=== PATIENT | male | born 1960 | race Caucasian/White ===

== ENCOUNTER 2016-07-10 11:56 | Inpatient (IN) | payer SELFPAY ==
[~2016-07-10] VITALS: Ht 175.3 cm; Wt 58.3 kg
[~2016-07-10 11:56] MED LIST: DICL75 PO; HYDR-3533 PO
[2016-07-10 12:03] VITALS: BP 141/95; PULSE 78; RESP 16; TEMP 98.4; O2SAT 97
[2016-07-10] MEDS ORDERED: SODIUM CHLORIDE 0.9% FLUSH 5 ML FLUSH IVF PRN ×2 (12:30→13:45)
[2016-07-10] MEDS ORDERED: CLINDAMYCIN INJ 900 MG in SODIUM CHLORIDE 0.9% INJ 100 ML IV ONE (12:30)
[2016-07-10] MEDS ORDERED: LIDOCAINE HCL 1% 50 ML VIAL INFIL ONE (12:30)
[2016-07-10 12:41] LABS: AUTOMATED NEUTROPHIL # 4.9 TH/MM3 (1.8-7.7); BASOPHIL % 0.6 % (0.0-2.0); EOSINOPHIL # 0.1 TH/MM3 (0-0.4); EOSINOPHIL % 1.4 % (0.0-4.0); HEMATOCRIT 39.7 % (39.0-51.0); HEMO FLAGS DIFF FINAL; LYMPH % 18.2 % (9.0-44.0); LYMPHOCYTE # 1.2 TH/MM3 (1.0-4.8); MEAN CELL VOLUME 87.4 FL (80.0-100.0); MEAN CORPUSCULAR HEMOGLOBIN 29.5 PG (27.0-34.0); MEAN CORPUSCULAR HGB CONC 33.7 % (32.0-36.0); MONO % 9.4 % (0.0-8.0); NEUT % 70.4 % (16.0-70.0); PLATELET COUNT 213 TH/MM3 (150-450); RED BLOOD COUNT 4.54 MIL/MM3 (4.50-5.90); RED CELL DISTRIBUTION WIDTH 12.5 % (11.6-17.2); WHITE BLOOD COUNT 6.8 TH/MM3 (4.0-11.0)
[2016-07-10 12:53] LABS: BICARBONATE 24.2 MEQ/L (21.0-32.0)
--- NOTE | 2016-07-10 13:16 | PD ---
HPI Chief Complaint: Skin Problem Time Seen by Provider: 12:06 Travel History International Travel<30 days: No Contact w/Intl Traveler<30days: No Traveled to known affect area: No History of Present Illness HPI 55-year-old male presents to the emergency room for evaluation of right arm lesions that has been present for the past 5 days. Patient has 3 lesions and states they showed up on different days. Elbow lesion showed up 5 days ago, forearm lesion showed 4 days ago, and wrist lesion showed up 3 days ago. The elbow and forearm have been spontaneously draining and seemed to be improving per patient. He stuck a needle in the wrist abscess which drained "watered down blood." Reports significant pain in the wrist with palpation and range of motion. Patient has not taken anything for pain because he does not like to take medication. States he self medicated with alcohol last night. Denies paresthesias. States 3 days ago he also developed subjective fever, chills, streaking, nausea, and vomiting. He did not actually take his temperature. States nausea and vomiting have since subsided. Streaking has been getting worse. Denies chronic medical conditions or daily medications. PFSH Past Medical History Medical History: Denies Significant Hx Hx Anticoagulant Therapy: No Cardiovascular Problems: Yes ([place]) Diabetes: No Influenza Vaccination: No Past Surgical History Tonsillectomy: Yes Social History Alcohol Use: Yes (DAILY) Tobacco Use: Yes (1 PPD) Substance Use: No Allergies-Medications (Allergen,Severity, Reaction): Coded Allergies: No Known Allergies (Unverified , 07/10/16) Reported Meds & Prescriptions Reported Meds & Active Scripts Active No Active Prescriptions or Reported Medications Review of Systems Except as stated in HPI: all other systems reviewed are Neg Physical Exam Narrative GENERAL: Well-nourished, well-developed male in no acute distress. Afebrile. Ambulatory. SKIN: Warm and dry. There is 1 cm healing scab that is mildly tender to palpation but not draining and without surrounding inflammation on the right elbow. There is a second 1 cm, healing scab on the posterior right forearm that is mildly tender to palpation without surrounding inflammation. There is an indurated area in the right volar wrist which measures about 3 cm in diameter. It is fluctuant with pointing and slight drainage. There is a zone of inflammation around it and lymphangitis extending up the axilla. No palpable axillary lymph nodes. HEAD: Normocephalic. EYES: No scleral icterus. No injection or drainage. NECK: Supple, trachea midline. No JVD or lymphadenopathy. CARDIOVASCULAR: Regular rate and rhythm without murmurs, gallops, or rubs. RESPIRATORY: Breath sounds equal bilaterally. No accessory muscle use. EXTREMITY: Right wrist extremely tender to palpation over the abscess. Patient can extend the wrist to about 45 and flex about 20. Mild to moderate edema of the right wrist. Full range motion of the shoulder, elbow, and hand. 2+ radial pulse and less than 2 second capillary refill distally. Data Data Last Documented VS Vital Signs Date Time Temp Pulse Resp B/P Pulse Ox O2 Delivery O2 Flow Rate FiO2 07/10/16 12:03 98.4 78 16 141/95 97 Orders Basic Metabolic Panel (Bmp) (07/10/16 12:22) Complete Blood Count With Diff (07/10/16 12:22) Blood Culture (07/10/16 12:22) Wound Culture And Gram Stain (07/10/16 12:22) Iv Access Insert/Monitor (07/10/16 12:22) Lidocaine 1% Inj (50 Ml) (Xylocaine 1% I (07/10/16 12:30) Sodium Chloride 0.9% Flush (Ns Flush) (07/10/16 12:30) Clindamycin Inj (Cleocin Inj) (07/10/16 12:30) Admit Order (Ed Use Only) (07/10/16 13:41) Labs Laboratory Tests Test 07/10/16 12:30 White Blood Count 6.8 TH/MM3 Red Blood Count 4.54 MIL/MM3 Hemoglobin 13.4 GM/DL Hematocrit 39.7 % Mean Corpuscular Volume 87.4 FL Mean Corpuscular Hemoglobin 29.5 PG Mean Corpuscular Hemoglobin 33.7 % Concent Red Cell Distribution Width 12.5 % Platelet Count 213 TH/MM3 Mean Platelet Volume 7.2 FL Neutrophils (%) (Auto) 70.4 % Lymphocytes (%) (Auto) 18.2 % Monocytes (%) (Auto) 9.4 % Eosinophils (%) (Auto) 1.4 % Basophils (%) (Auto) 0.6 % Neutrophils # (Auto) 4.9 TH/MM3 Lymphocytes # (Auto) 1.2 TH/MM3 Monocytes # (Auto) 0.6 TH/MM3 Eosinophils # (Auto) 0.1 TH/MM3 Basophils # (Auto) 0.0 TH/MM3 CBC Comment DIFF FINAL Differential Comment Sodium Level 136 MEQ/L Potassium Level 4.0 MEQ/L Chloride Level 101 MEQ/L Carbon Dioxide Level 24.2 MEQ/L Anion Gap 11 MEQ/L Blood Urea Nitrogen 4 MG/DL Creatinine 0.66 MG/DL Estimat Glomerular Filtration 125 ML/MIN Rate Random Glucose 86 MG/DL Calcium Level 8.8 MG/DL MDM Medical Decision Making Medical Screen Exam Complete: Yes Emergency Medical Condition: Yes Medical Record Reviewed: Yes Differential Diagnosis Abscess versus cellulitis versus MRSA lesion Narrative Course 55-year-old male presents to the emergency room for evaluation of right upper extremity lesions for the past 5 days. He is resting comfortable. Vital signs stable. Physical exam reveals a 1 cm healing scab that is mildly tender to palpation but not draining and without surrounding inflammation on the right elbow. There is a second 1 cm, healing scab on the posterior right forearm that is mildly tender to palpation without drainage or surrounding inflammation. There is an indurated area in the right volar wrist which measures about 3 cm in diameter. It is fluctuant with pointing and slight drainage. There is a zone of inflammation around it and lymphangitis extending up the axilla. No palpable axillary lymph nodes. Right wrist extremely tender to palpation over the abscess. Patient can extend the wrist to about 45 and flex about 20. Mild to moderate edema of the right wrist. Full range motion of the shoulder, elbow, and hand. 2+ radial pulse and less than 2 second capillary refill distally. Wrist abscess was drained, see procedure note for details. CBC and BMP are unremarkable. Blood cultures obtained and patient started on IV clindamycin. He was given Lortab for pain. Because lymphangitis extends all the way up to the axilla, patient will be admitted for IV antibiotics. He understands and is agreeable. My attending physician, Dr. Laws , spoke to Dr. Edward who agrees to accept this patient to her service. Procedures Procedure Narrative INCISION AND DRAINAGE OF ABSCESS: The area was prepped and was sterilely draped. A subcutaneous wheal of 1% lidocaine with epinephrine with a total number 3 mL was used to anesthetize the area properly. A number 11 scalpel was used to make a1 cm incision across the area of the abscess. The abscess was drained, complex loculations were broken down, and irrigated with normal saline. Cultures were obtained. Sterile dressing applied. Physician Communication Physician Communication My attending physician, Dr. Laws, spoke to the admitting physician, Dr. Edward. Diagnosis Primary Impression: Abscess of wrist Additional Impression: Cellulitis with lymphangitis Admitting Information Admitting Physician Requests: Admit Scripts No Active Prescriptions or Reported Meds Disposition: 01 DISCHARGE HOME Condition: Stable Lulú Soto Jul 10, 2016 13:16
[2016-07-10] MEDS ORDERED: ONDANSETRON HCL 4 MG/2 ML VIAL IVP PRN (13:45)
[2016-07-10] MEDS ORDERED: ACETAMINOPHEN 325 MG TAB PO PRN ×2 (13:45)
[2016-07-10] MEDS ORDERED: ONDANSETRON HCL 4 MG/2 ML VIAL IV PRN (13:45)
[2016-07-10] MEDS ORDERED: SODIUM CHLORIDE 0.9% FLUSH 5 ML FLUSH FLUSH PRN (13:45)
[2016-07-10 13:47] VITALS: BP 128/74; PULSE 64; RESP 18; O2SAT 99
[2016-07-10] MEDS: PIPERACIL-TAZO 3.375 GM PREMIX 50 ML IV SCH ×2 (13:54→23:19)
[2016-07-10] MEDS ORDERED: ACETAMINOPHEN/HYDROcodone 325 MG/5 MG TAB PO ONE (14:00)
[2016-07-10] MEDS: VANCOMYCIN INJ 1,000 MG in SODIUM CHLOR 0.9% 250 ML INJ 250 ML IV SCH (14:14)
--- NOTE | 2016-07-10 15:03 | HHI.HP ---
[facility] Primary [facility] Physician No Primary Care Physician Admission Diagnosis right wrist abscess. Cellulitis with lymphangitis. Diagnoses: Chief Complaint: right arm/wrist infection Travel History International Travel<30 Days: No Contact w/Intl Traveler <30 Da: No Traveled to Known Affected Are: No History of Present Illness Patient is a healthy 55 Male with no past history who has had about 6 days of right arm sores and now a right medial wrist ulceration with increased pain and edema. He noted some streaking up his right arm and came to the emergency room. He has been given IV antibiotics and pain was treated with oral narcotics. Patient says that he is feeling a bit better but he did notice some chills and sweats the previous 24 hours. Patient notes no nausea and vomiting. He has not had any skin infections he admits to and he denies IV drug use. Patient is admitted to the hospital for further evaluation of lymphangitis and cellulitis Review of Systems Constitutional: DENIES: Diaphoretic episodes, Fatigue, Fever, Weight gain, Weight loss, Chills, Dizziness, Change in appetite, Night Sweats Endocrine: DENIES: Heat/cold intolerance, Polydipsia, Polyuria, Polyphagia Eyes: DENIES: Blurred vision, Diplopia, Eye inflammation, Eye pain, Vision loss , Photosensitivity, Double Vision Ears, nose, mouth, throat: DENIES: Tinnitus, Hearing loss, Vertigo, Nasal discharge, Oral lesions, Throat pain, Hoarseness, Ear Pain, Running Nose, Epistaxis, Sinus Pain, Toothache, Odynophagia Respiratory: DENIES: Apneas, Cough, Snoring, Wheezing, Hemoptysis, Sputum production, Shortness of breath Cardiovascular: DENIES: Chest pain, Palpitations, Syncope, Dyspnea on Exertion , PND, Lower Extremity Edema, Orthopnea, Claudication Gastrointestinal: DENIES: Abdominal pain, Black stools, Bloody stools, Constipation, Diarrhea, Nausea, Vomiting, Difficulty Swallowing, Anorexia Genitourinary: DENIES: Sexual dysfunction, Urinary frequency, Urinary incontinence, Urgency, Hematuria, Dysuria, Nocturia, Penile Discharge, Testicular Pain, Testicular Swelling Musculoskeletal: COMPLAINS OF: Joint pain, DENIES: Muscle aches, Stiffness, Joint Swelling, Back pain, Neck pain Integumentary: DENIES: Abnormal pigmentation, Nail changes, Pruritus, Rash Hematologic/lymphatic: DENIES: Bruising, Lymphadenopathy Immunologic/allergic: DENIES: Eczema, Urticaria Neurologic: DENIES: Abnormal gait, Headache, Localized weakness, Paresthesias, Seizures, Speech Problems, Tremor, Poor Balance Psychiatric: DENIES: Anxiety, Confusion, Mood changes, Depression, Hallucinations, Agitation, Suicidal Ideation, Homicidal Ideation, Delusions Past Family Social History Past Medical History none Past Surgical History Tonsils Reported Medications none Allergies: Coded Allergies: No Known Allergies (Unverified , 07/10/16) Family History No fam hx of HTN, or DM Social History works odd jobs "a lot" of beer, 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 SKIN: No rashes, ecchymoses or lesions. Cool and dry. HEAD: Atraumatic. Normocephalic. No temporal or scalp tenderness. EYES: Pupils equal round and reactive. Extraocular motions intact. No scleral icterus. No injection or drainage. ENT: Nose without bleeding, purulent drainage or septal hematoma. Throat without erythema, tonsillar hypertrophy or exudate. Uvula midline. Airway patent. NECK: Trachea midline. No JVD or lymphadenopathy. Supple, nontender, no meningeal signs. CARDIOVASCULAR: Regular rate and rhythm without murmurs, gallops, or rubs. RESPIRATORY: Clear to auscultation. Breath sounds equal bilaterally. No wheezes , rales, or rhonchi. GASTROINTESTINAL: Abdomen soft, non-tender, nondistended. No hepato-splenomegaly , or palpable masses. No guarding. MUSCULOSKELETAL: RIgh wrist skin erythema, lymphangitic streaking; Extremities without clubbing, cyanosis, or edema. No joint tenderness, effusion, or edema noted. No calf tenderness. Negative Homans sign bilaterally. NEUROLOGICAL: Awake and alert. Cranial nerves II through XII intact. Motor and sensory grossly within normal limits. Five out of 5 muscle strength in all muscle groups. Normal speech. Laboratory Laboratory Tests Test 07/10/16 12:30 White Blood Count 6.8 Red Blood Count 4.54 Hemoglobin 13.4 Hematocrit 39.7 Mean Corpuscular Volume 87.4 Mean Corpuscular Hemoglobin 29.5 Mean Corpuscular Hemoglobin 33.7 Concent Red Cell Distribution Width 12.5 Platelet Count 213 Mean Platelet Volume 7.2 Neutrophils (%) (Auto) 70.4 Lymphocytes (%) (Auto) 18.2 Monocytes (%) (Auto) 9.4 Eosinophils (%) (Auto) 1.4 Basophils (%) (Auto) 0.6 Neutrophils # (Auto) 4.9 Lymphocytes # (Auto) 1.2 Monocytes # (Auto) 0.6 Eosinophils # (Auto) 0.1 Basophils # (Auto) 0.0 CBC Comment DIFF FINAL Differential Comment Sodium Level 136 Potassium Level 4.0 Chloride Level 101 Carbon Dioxide Level 24.2 Anion Gap 11 Blood Urea Nitrogen 4 Creatinine 0.66 Estimat Glomerular Filtration 125 Rate Random Glucose 86 Calcium Level 8.8 Date/Time Procedure Status Source Growth 07/10/16 13:00 Gram Stain Received Wound Wrist Pending 07/10/16 13:00 Wound Culture Received Wound Wrist Pending 07/10/16 12:35 Aerobic Blood Culture Received Blood Peripheral Pending 07/10/16 12:35 Anaerobic Blood Culture Received Blood Peripheral Pending Result Diagram: 07/10/16 1230 07/10/16 1230 Assessment and Plan Problem List: (1) Cellulitis with lymphangitis ICD Code: L03.90 Status: Acute Plan: Zosyn/ Vancomycin IV Follow progress pending Physician Certification 2 Midnight Certification Type: Admission for Inpatient Services Order for Inpatient Services The services are ordered in accordance with Medicare regulations or non- Medicare payer requirements, as applicable. In the case of services not specified as inpatient-only, they are appropriately provided as inpatient services in accordance with the 2-midnight benchmark. Estimated LOS (days): 3 3 days is the estimated time the patient will need to remain in the hospital, assuming treatment plan goals are met and no additional complications. Post-Hospital Plan: Brenda Dinh MD Jul 10, 2016 15:03
[2016-07-10 16:44] VITALS: PULSE 70
[2016-07-10 17:18] VITALS: BP 134/77; PULSE 59; RESP 18; TEMP 97.5; O2SAT 97
[2016-07-10] MEDS: NICOTINE 21 MG/24 HR PATCH TD SCH (17:40)
[2016-07-10 20:00] VITALS: BP 116/73; PULSE 55; RESP 18; TEMP 97.7; O2SAT 96
[2016-07-10 20:17] VITALS: O2SAT 97
[2016-07-10] MEDS ORDERED: SODIUM CHLORIDE 0.9% FLUSH 5 ML FLUSH IVF SCH (21:00)
[2016-07-10] MEDS: SODIUM CHLORIDE 0.9% FLUSH 5 ML FLUSH FLUSH SCH (23:20)
[2016-07-11] VITALS: BP 137/81; PULSE 51; RESP 18; TEMP 97.7; O2SAT 97
[2016-07-11] MEDS: VANCOMYCIN INJ 1,000 MG in SODIUM CHLOR 0.9% 250 ML INJ 250 ML IV SCH ×2 (03:51→15:43)
[2016-07-11 06:03] LABS: AUTOMATED NEUTROPHIL # 4.5 TH/MM3 (1.8-7.7); BASOPHIL # 0.1 TH/MM3 (0-0.2); BASOPHIL % 1.2 % (0.0-2.0); EOSINOPHIL # 0.1 TH/MM3 (0-0.4); EOSINOPHIL % 1.8 % (0.0-4.0); HEMATOCRIT 37.5 % (39.0-51.0); HEMO FLAGS DIFF FINAL; LYMPH % 23.2 % (9.0-44.0); LYMPHOCYTE # 1.6 TH/MM3 (1.0-4.8); MEAN CELL VOLUME 88.4 FL (80.0-100.0); MONO % 10.3 % (0.0-8.0); NEUT % 63.5 % (16.0-70.0); PLATELET COUNT 195 TH/MM3 (150-450); RED BLOOD COUNT 4.25 MIL/MM3 (4.50-5.90); RED CELL DISTRIBUTION WIDTH 12.2 % (11.6-17.2)
[2016-07-11] MEDS: PIPERACIL-TAZO 3.375 GM PREMIX 50 ML IV SCH ×3 (06:06→22:15)
[2016-07-11 06:11] LABS: POTASSIUM 3.8 MEQ/L (3.5-5.1)
[2016-07-11 08:00] VITALS: BP 128/77; PULSE 65; RESP 18; TEMP 98.3; O2SAT 96
[2016-07-11] MEDS: NICOTINE 21 MG/24 HR PATCH TD SCH (08:00)
[2016-07-11] MEDS: SODIUM CHLORIDE 0.9% FLUSH 5 ML FLUSH FLUSH SCH ×2 (08:00→20:57)
[2016-07-11] MEDS: REMOVE OLD NICODERM (NICOTINE) PATCH TD SCH (08:00)
--- NOTE | 2016-07-11 09:48 | HHI.PR ---
Subjective Remarks Patient seen and evaluated today in follow-up for right arm cellulitis. Overall improved. Lymphangitis, abscess and erythema are grossly improved, patient planning of some pain in his wrist. I did discuss pain management the patient is agreeable to take ibuprofen today. No Further fevers Objective Vitals Vital Signs Date Time Temp Pulse Resp B/P Pulse Ox O2 Delivery O2 Flow Rate FiO2 07/11/16 08:00 98.3 65 18 128/77 96 07/11/16 00:00 97.7 51 18 137/81 97 07/10/16 20:17 97 07/10/16 20:00 97.7 55 18 116/73 96 07/10/16 17:18 97.5 59 18 134/77 97 07/10/16 16:44 70 07/10/16 13:47 64 18 128/74 99 Room Air 07/10/16 12:03 98.4 78 16 141/95 97 I/O 07/10/16 07/10/16 07/10/16 07/11/16 07/11/16 07/11/16 07:00 15:00 23:00 07:00 15:00 23:00 Intake Total 640 ml 350 ml 385 ml Balance 640 ml 350 ml 385 ml Intake Oral 240 ml 350 ml IV Total 400 ml 385 ml Result Diagram: 07/11/16 0450 07/11/16 0450 Objective Remarks GENERAL: This is a well-nourished, well-developed patient, in no apparent distress. CARDIOVASCULAR: Regular rate and rhythm without murmurs, gallops, or rubs. RESPIRATORY: Clear to auscultation. Breath sounds equal bilaterally. No wheezes , rales, or rhonchi. GASTROINTESTINAL: Abdomen soft, non-tender, nondistended. Normal active bowel sounds MUSCULOSKELETAL: Right arm erythema improved, right wrist abscess improved. Patient other 3 Extremities without clubbing, cyanosis, or edema. NEURO: Alert & Oriented x4 to person, place, time, situation. Moves all ext x4 A/P Problem List: (1) Cellulitis with lymphangitis ICD Code: L03.90 Status: Acute Plan: Improved Zosyn/ Vancomycin IV Follow progress BC pending ibuprofen X1 Brenda Edward MD Jul 11, 2016 09:48
[2016-07-11] MEDS ORDERED: IBUPROFEN 800 MG TAB PO ONE (10:00)
[2016-07-11 12:00] VITALS: BP 117/80; PULSE 63; RESP 18; TEMP 98.2; O2SAT 96
[2016-07-11] MEDS ORDERED: IBUPROFEN 400 MG TAB PO PRN (12:45)
[2016-07-11 16:00] VITALS: BP 121/76; PULSE 76; RESP 18; TEMP 98.1; O2SAT 97
[2016-07-11 20:00] VITALS: BP 122/77; PULSE 51; RESP 18; TEMP 98.4; O2SAT 95
[2016-07-12] VITALS: BP 113/79; PULSE 56; RESP 16; TEMP 97; O2SAT 95
[2016-07-12] MEDS: VANCOMYCIN INJ 1,000 MG in SODIUM CHLOR 0.9% 250 ML INJ 250 ML IV SCH ×2 (02:49→13:38)
[2016-07-12] MEDS: PIPERACIL-TAZO 3.375 GM PREMIX 50 ML IV SCH ×2 (05:12→13:38)
[2016-07-12] MEDS: REMOVE OLD NICODERM (NICOTINE) PATCH TD SCH (07:21)
[2016-07-12] MEDS: NICOTINE 21 MG/24 HR PATCH TD SCH (07:21)
[2016-07-12 08:00] VITALS: BP 141/86; PULSE 58; RESP 16; TEMP 98.2; O2SAT 96
[2016-07-12] MEDS: SODIUM CHLORIDE 0.9% FLUSH 5 ML FLUSH FLUSH SCH (09:00)
[2016-07-12] MEDS ORDERED: ACYCLOVIR 5% OINT 5 APPLIC/5 GM TUBE TOP SCH (10:00)
[2016-07-12] MEDS: ACYCLOVIR 5% OINT 15 APPLIC/15 GM TUBE TOP SCH ×2 (10:30→13:38)
[2016-07-12] MEDS ORDERED: BACT800T5 PO (10:37)
[2016-07-12] MEDS ORDERED: CLIN1CAP6 PO (10:37)
--- NOTE | 2016-07-12 10:38 | HHI.DCPOC ---
Discharge Care Plan Diagnosis: (1) Cellulitis with lymphangitis Goals to Promote Your Health * To prevent worsening of your condition and complications * To maintain your health at the optimal level Directions to Meet Your Goals Take your medications as prescribed Follow your dietary instruction Follow activity as directed Keep your appointments as scheduled Take your immunizations and boosters as scheduled If your symptoms worsen call your PCP, if no PCP go to Urgent Care Center or Emergency Room Smoking is Dangerous to Your Health. Avoid second hand smoke Call the 24-hour hour crisis hotline for domestic abuse at Brenda Edward MD Jul 12, 2016 10:38
--- NOTE | 2016-07-12 10:40 | HHI.DS ---
Discharge Summary Admission Date Jul 10, 2016 at 13:42 Discharge Date: Jul 12, 2016 Admitting Diagnosis right wrist abscess. Cellulitis with lymphangitis. (1) Cellulitis with lymphangitis ICD Code: L03.90 Procedures none Brief History - From Admission Patient is a healthy 55 Male with no past history who has had about 6 days of right arm sores and now a right medial wrist ulceration with increased pain and edema. He noted some streaking up his right arm and came to the emergency room. He has been given IV antibiotics and pain was treated with oral narcotics. Patient says that he is feeling a bit better but he did notice some chills and sweats the previous 24 hours. Patient notes no nausea and vomiting. He has not had any skin infections he admits to and he denies IV drug use. Patient is admitted to the hospital for further evaluation of lymphangitis and cellulitis CBC/BMP: 07/11/16 0450 07/11/16 0450 Significant Findings Laboratory Tests Test 07/10/16 07/11/16 12:30 04:50 Neutrophils (%) (Auto) 70.4 % (16.0-70.0) Monocytes (%) (Auto) 9.4 % (0.0-8.0) 10.3 % (0.0-8.0) Blood Urea Nitrogen 4 MG/DL (7-18) Red Blood Count 4.25 MIL/MM3 (4.50-5.90) Hemoglobin 12.8 GM/DL (13.0-17.0) Hematocrit 37.5 % (39.0-51.0) PE at Discharge GENERAL: This is a well-nourished, well-developed patient, in no apparent distress. CARDIOVASCULAR: Regular rate and rhythm without murmurs, gallops, or rubs. RESPIRATORY: Clear to auscultation. Breath sounds equal bilaterally. No wheezes , rales, or rhonchi. GASTROINTESTINAL: Abdomen soft, non-tender, nondistended. Normal active bowel sounds MUSCULOSKELETAL: Right arm erythema improved, right wrist abscess improved. Patient other 3 Extremities without clubbing, cyanosis, or edema. NEURO: Alert & Oriented x4 to person, place, time, situation. Moves all ext x4 Pt update on day of discharge Patient seen today in follow-up for right arm infection which is greatly improved. Discharge plans the patient. Cultures are resulted in addition to Bactrim and clindamycin. Patient will continue with these at home Hospital Course Patient is a 55-year-old gentleman was admitted with a right arm cellulitis with some lymphangitis. Patient did well with medical treatments and IV antibiotics. Cellulitis and lymphangitis improved and patient was discharged home Pt Condition on Discharge: Good Discharge Disposition: Discharge Home Discharge Time: > 30 minutes Discharge Instructions DIET: Follow Instructions for: As Tolerated, No Restrictions Activities you can perform: Regular-No Restrictions New Medications: Clindamycin (Clindamycin) 300 Mg Cap 300 MG PO TID Infection #30 Ref 0 CAP Sulfamethoxazole-Trimethoprim (Bactrim DS) 800-160 Mg Tab 1 TAB PO BID Infection #20 Ref 0 TAB Brenda Edward MD Jul 12, 2016 10:40
[2016-07-12 12:00] VITALS: BP 121/83; PULSE 59; RESP 18; TEMP 97.4; O2SAT 96
== END 2016-07-12 16:55 | disposition home or self-care (01) | DRG 603 ==
LOC: PHEFT 11:56 → PHEDA 13:42 → PH3A 16:01
PROVIDERS: ADMIT Hospitalist; ATTEND Hospitalist
PROC: 0H9DXZX Drainage of Right Lower Arm Skin, External Approach, Diagnostic (ICD-10-PCS; principal; 2016-07-10)
DX: L03.113 Cellulitis of right upper limb (principal); I89.1 Lymphangitis; F17.210 Nicotine dependence, cigarettes, uncomplicated; Z72.89 Other problems related to lifestyle
CPT/HCPCS: 10060; 80048; 85025; 86403; 87040; 87070; 87147; 87186; 87205; 96365; J2543; J3370; J7050

== ENCOUNTER 2016-11-27 18:45 | Emergency (ER) | payer SELFPAY ==
[~2016-11-27] VITALS: Ht 175.3 cm; Wt 63.0 kg
[~2016-11-27 18:45] MED LIST changes: +BACT800T5 PO; +CLIN1CAP6 PO; -DICL75 PO; -HYDR-3533 PO
[2016-11-27 18:55] VITALS: BP 147/98; PULSE 74; RESP 16; TEMP 100.4; O2SAT 97
[2016-11-27] MEDS ORDERED: KETOROLAC TROMETHAMINE 30 MG/ML (IVP) VIAL IV PUSH ONE (19:15)
[2016-11-27] MEDS ORDERED: SODIUM CHLORIDE 0.9% FLUSH 10 ML FLUSH IVF PRN (19:15)
--- NOTE | 2016-11-27 19:15 | PD ---
HPI Chief Complaint: Musculoskeletal Complaint Time Seen by Provider: 19:03 Travel History International Travel<30 days: No Contact w/Intl Traveler<30days: No Traveled to known affect area: No History of Present Illness HPI 56-year-old male here for evaluation of severe left shoulder pain. Patient reported the pain started 2 days ago after doing laundry. Pain is so severe that he is unable to move his left shoulder. He denies trauma. He has had subjective fevers/chills, and was noted to have a temp of 100.4F in triage. Pain is sharp/stabbing, radiates across his left chest and down his left arm, is worse with movement and palpation. He smokes cigarettes daily and drinks a few beers daily as well. He denies IVDU. No known history of coronary artery disease, however reports history of rheumatic fever. Chart review shows that the patient was admitted for right wrist abscess/cellulitis in June of this year which was treated with incision and drainage as well as IV antibiotics. Patient tells me that he does not want any narcotic pain medication because he does not want become addicted like some of his friends have. PFSH Past Medical History Hx Anticoagulant Therapy: No Arthritis: Yes Asthma: No Heart Rhythm Problems: No Cardiovascular Problems: Yes ([place]) High Cholesterol: No Chest Pain: No COPD: No Cerebrovascular Accident: No Diabetes: No Genitourinary: No Musculoskeletal: Yes Neurologic: No Psychiatric: No Reproductive: No Respiratory: No Migraines: No Seizures: Yes Sleep Apnea: No Past Surgical History Tonsillectomy: Yes Social History Alcohol Use: Yes (DAILY) Tobacco Use: Yes (1 PPD) Substance Use: No Allergies-Medications (Allergen,Severity, Reaction): Coded Allergies: No Known Allergies (Unverified , 11/27/16) Reported Meds & Prescriptions Reported Meds & Active Scripts Active Reported Ibuprofen 600 Mg Tab 600 Mg PO Q6H PRN Review of Systems Except as stated in HPI: all other systems reviewed are Neg Physical Exam Narrative GENERAL: Well-developed, thin, sitting on end of stretcher, no acute distress. SKIN: Focused skin assessment warm/dry. Left shoulder and anterior clavicle with diffuse warmth and erythema. HEAD: Atraumatic. Normocephalic. EYES: Pupils equal and round. No scleral icterus. No injection or drainage. ENT: Mucous membranes pink and moist. NECK: Trachea midline. No JVD. No nuchal rigidity. CARDIOVASCULAR: Regular rate and rhythm. Distal pulses brisk and equal bilaterally. RESPIRATORY: No accessory muscle use. Clear to auscultation. Breath sounds equal bilaterally. GASTROINTESTINAL: Abdomen soft, non-tender, nondistended. MUSCULOSKELETAL: Skin exam as above. Limited range of motion in left shoulder secondary to pain. Limited range of passive motion as this causes severe pain in the left shoulder. Normal range of motion in left elbow and left wrist, however this causes pain in his left shoulder. All compartments in left upper extremity are supple. No obvious deformities. NEUROLOGICAL: Awake and alert. No obvious cranial nerve deficits. Motor grossly within normal limits. Normal speech. PSYCHIATRIC: Appropriate mood and affect; insight and judgment normal. Data Data Last Documented VS Vital Signs Date Time Temp Pulse Resp B/P Pulse Ox O2 Delivery O2 Flow Rate FiO2 11/27/16 23:01 98.4 72 20 148/86 98 Orders Electrocardiogram (11/27/16 19:09) Ckmb (Isoenzyme) Profile (11/27/16 19:09) Complete Blood Count With Diff (11/27/16 19:09) Comprehensive Metabolic Panel (11/27/16 19:09) Prothrombin Time / Inr (Pt) (11/27/16 19:09) Act Partial Throm Time (Ptt) (11/27/16 19:09) Troponin I (11/27/16 19:09) Chest, Single Ap (11/27/16 19:09) Ecg Monitoring (11/27/16 19:09) Iv Access Insert/Monitor (11/27/16 19:09) Oximetry (11/27/16 19:09) Sodium Chloride 0.9% Flush (Ns Flush) (11/27/16 19:15) Shoulder, Complete (>2vws) (11/27/16 ) Westergren Sedimentation Rate (11/27/16 19:09) C-Reactive Protein (Crp) (11/27/16 19:09) Lactic Acid (11/27/16 19:09) Blood Culture (11/27/16 19:09) Ketorolac Inj (Toradol Inj) (11/27/16 19:15) Lidocaine 1% Inj (50 Ml) (Xylocaine 1% I (11/27/16 21:15) Mri Joint Shoulder W/O Contras (11/27/16 ) Ketorolac Inj (Toradol Inj) (11/28/16 00:00) Labs Laboratory Tests Test 11/27/16 11/27/16 19:45 19:54 White Blood Count 10.7 TH/MM3 Red Blood Count 4.37 MIL/MM3 Hemoglobin 13.0 GM/DL Hematocrit 38.9 % Mean Corpuscular Volume 89.0 FL Mean Corpuscular Hemoglobin 29.9 PG Mean Corpuscular Hemoglobin 33.6 % Concent Red Cell Distribution Width 13.5 % Platelet Count 174 TH/MM3 Mean Platelet Volume 7.9 FL Neutrophils (%) (Auto) 79.9 % Lymphocytes (%) (Auto) 11.1 % Monocytes (%) (Auto) 6.1 % Eosinophils (%) (Auto) 0.5 % Basophils (%) (Auto) 2.4 % Neutrophils # (Auto) 8.4 TH/MM3 Lymphocytes # (Auto) 1.2 TH/MM3 Monocytes # (Auto) 0.7 TH/MM3 Eosinophils # (Auto) 0.1 TH/MM3 Basophils # (Auto) 0.3 TH/MM3 CBC Comment DIFF FINAL Differential Comment Erythrocyte Sedimentation Rate 20 mm/hr Sodium Level 131 MEQ/L Potassium Level MEQ/L Chloride Level 98 MEQ/L Carbon Dioxide Level 25.8 MEQ/L Anion Gap 7 MEQ/L Blood Urea Nitrogen 6 MG/DL Creatinine 0.71 MG/DL Estimat Glomerular Filtration 115 ML/MIN Rate Random Glucose 87 MG/DL Calcium Level 9.2 MG/DL Total Bilirubin 0.8 MG/DL Aspartate Amino Transf 43 U/L (AST/SGOT) Alanine Aminotransferase 51 U/L (ALT/SGPT) Alkaline Phosphatase 81 U/L Total Creatine Kinase 70 U/L Troponin I LESS THAN 0.02 NG/ML C-Reactive Protein 1.90 MG/DL Total Protein 8.1 GM/DL Albumin 3.6 GM/DL Prothrombin Time 10.2 SEC Prothromb Time International 0.9 RATIO Ratio Activated Partial 27.6 SEC Thromboplast Time Lactic Acid Level 0.9 mmol/L MDM Medical Decision Making Medical Screen Exam Complete: Yes Emergency Medical Condition: Yes Medical Record Reviewed: Yes Interpretation(s) EKG: Sinus, rate 73, normal axis, normal intervals, no acute ischemic abnormality. Differential Diagnosis Septic arthritis, arthritis, calcific tendinitis, rotator cuff injury, Narrative Course Initial vital signs show heart rate 74, blood pressure 147/98, pulse ox 97% on room air, oral temp of 100.4F. CBC shows WBC 10.4, hemoglobin 13, hematocrit 38.9, platelets 174, neutrophils 79.9%. CMP is essentially unremarkable. Cardiac enzymes are negative. Lactic acid is 0.9. ESR is 20. CRP is elevated at 1.9. Chest x-ray: Hyperinflation suggesting COPD. Lungs are clear. Left shoulder x-ray: Unremarkable exam of the left shoulder. Patient was given Toradol with some improvement in pain. He is still unable to move the shoulder because of the pain. Given the extreme amount of pain, initial temperature 100.4F, and elevated CRP with slight elevation in neutrophil count, I am concerned about possible septic arthritis versus osteomyelitis. I attempted to aspirate synovial fluid from the left shoulder, however I was unsuccessful. MRI was then ordered to further evaluate this shoulder for possible septic arthritis/osteomyelitis. EKG shows no signs of ischemia. Cardiac enzymes are negative. I do not believe that his symptoms are cardiac in nature. They are very much musculoskeletal in nature as the patient has extreme tenderness to the left shoulder as well as extreme pain with passive movements of the left shoulder. At approximately midnight at the end of my shift the patient was signed out to Dr. Pederson to follow-up with left shoulder MRI and disposition the patient. Procedures Procedure Narrative Left shoulder joint aspiration: Informed consent obtained. Landmarks identified and marked with a sterile marker. Left shoulder prepped with ChloraPrep. 1 cc of 1% lidocaine was used for subcutaneous/local anesthesia. 2 attempts were made to approach the joint anteriorly with an 18-gauge needle. Joint aspiration was unsuccessful. Tolerated well. No complications. Bashir Khan MD November 27, 2016 19:15
[2016-11-27] MEDS ORDERED: IBUP-232 PO (19:30)
--- NOTE | 2016-11-27 19:49 | RADHPO ---
EXAM DATE/TIME: 11/27/2016 19:21 [facility] COMPARISON: No previous studies available for comparison. INDICATIONS : Left sided chest and shoulder pain for 3 days MEDICAL HISTORY : None. SURGICAL HISTORY : None. ENCOUNTER: Initial ACUITY: 3 days PAIN SCORE: 10/10 LOCATION: Left chest FINDINGS: 2 frontal views of the chest demonstrate the lungs to be symmetrically aerated without evidence of ma ss, infiltrate or effusion. The lungs are hyperinflated. The cardiomediastinal contours are unremark able. Osseous structures are intact. CONCLUSION: Hyperinflation suggesting COPD. Clear lungs. Pipe Taylor Jr., MD on November 27, 2016 at 19:46 Board Certified Radiologist. This report was verified electronically.
--- NOTE | 2016-11-27 19:50 | RADHPO ---
EXAM DATE/TIME: 11/27/2016 19:23 [facility] COMPARISON: No previous studies available for comparison. INDICATIONS : Left shoulder pain for 3 days with no known injury MEDICAL HISTORY : None. SURGICAL HISTORY : None. ENCOUNTER: Initial ACUITY: 3 days PAIN SCORE: 10/10 LOCATION: Left entire shoulder FINDINGS: Multiple view examination of the left shoulder demonstrates no evidence of fracture or dislocation. The glenohumeral and acromioclavicular joints are maintained. There is normal range of motion betwee n internal and external rotation. Bony mineralization is normal. CONCLUSION: Unremarkable examination of the left shoulder. Pipe Taylor Jr., MD on November 27, 2016 at 19:48 Board Certified Radiologist. This report was verified electronically.
[2016-11-27 19:51] LABS: AUTOMATED NEUTROPHIL # 8.4 TH/MM3 (1.8-7.7); BASOPHIL # 0.3 TH/MM3 (0-0.2); BASOPHIL % 2.4 % (0.0-2.0); EOSINOPHIL # 0.1 TH/MM3 (0-0.4); EOSINOPHIL % 0.5 % (0.0-4.0); HEMATOCRIT 38.9 % (39.0-51.0); HEMO FLAGS DIFF FINAL; LYMPH % 11.1 % (9.0-44.0); LYMPHOCYTE # 1.2 TH/MM3 (1.0-4.8); MEAN CORPUSCULAR HEMOGLOBIN 29.9 PG (27.0-34.0); MEAN CORPUSCULAR HGB CONC 33.6 % (32.0-36.0); MONO % 6.1 % (0.0-8.0); NEUT % 79.9 % (16.0-70.0); PLATELET COUNT 174 TH/MM3 (150-450); RED BLOOD COUNT 4.37 MIL/MM3 (4.50-5.90); RED CELL DISTRIBUTION WIDTH 13.5 % (11.6-17.2); WHITE BLOOD COUNT 10.7 TH/MM3 (4.0-11.0)
[2016-11-27 20:02] LABS: CHLORIDE 98 MEQ/L (98-107); SODIUM (NA) 131 MEQ/L (136-145)
[2016-11-27 20:06] LABS: ANION GAP 7 MEQ/L (5-15); BICARBONATE 25.8 MEQ/L (21.0-32.0); BLOOD UREA NITROGEN 6 MG/DL (7-18)
[2016-11-27 20:09] LABS: ALT (GPT) 51 U/L (12-78); AST (GOT) 43 U/L (15-37)
[2016-11-27 20:10] LABS: GLOMERULAR FILTRATION RATE 115 ML/MIN (>89)
[2016-11-27 20:11] LABS: TOTAL BILIRUBIN ADULT 0.8 MG/DL (0.2-1.0)
[2016-11-27 20:12] LABS: ALKALINE PHOSPHATASE 81 U/L (45-117)
[2016-11-27 20:14] LABS: CREATINE KINASE 70 U/L (39-308)
[2016-11-27 20:17] LABS: APTT (PATIENT) 27.6 SEC (24.3-30.1); INTERNATIONAL NORMALIZED RATIO 0.9 RATIO; PROTHROMBIN TIME - PATIENT 10.2 SEC (9.8-11.6)
[2016-11-27 21:00] VITALS: BP 143/90; PULSE 68; RESP 20; O2SAT 96
[2016-11-27] MEDS ORDERED: LIDOCAINE HCL 1% 50 ML VIAL INFIL ONE (21:15)
[2016-11-27 22:00] VITALS: BP 148/86; PULSE 74; RESP 20; O2SAT 99
[2016-11-27 23:01] VITALS: BP 148/86; PULSE 72; RESP 20; TEMP 98.4; O2SAT 98
[2016-11-28] MEDS ORDERED: KETOROLAC TROMETHAMINE 30 MG/ML (IVP) VIAL IV PUSH ONE
[2016-11-28 00:32] VITALS: BP 138/80; PULSE 58; RESP 20; O2SAT 98
[2016-11-28 01:52] VITALS: TEMP 98
[2016-11-28] MEDS ORDERED: IBUP800T23 PO (01:58)
--- NOTE | 2016-11-28 01:59 | PD ---
Physical Exam Narrative Left this patient with me to check the results of the MRI of the shoulder and make a disposition. I can fully abduct this patient's left shoulder passively with no pain as long as he does not use any muscles. Data Data Last Documented VS Vital Signs Date Time Temp Pulse Resp B/P Pulse Ox O2 Delivery O2 Flow Rate FiO2 11/28/16 01:52 98.0 11/28/16 00:32 58 20 138/80 98 Orders Electrocardiogram (11/27/16 19:09) Ckmb (Isoenzyme) Profile (11/27/16 19:09) Complete Blood Count With Diff (11/27/16 19:09) Comprehensive Metabolic Panel (11/27/16 19:09) Prothrombin Time / Inr (Pt) (11/27/16 19:09) Act Partial Throm Time (Ptt) (11/27/16 19:09) Troponin I (11/27/16 19:09) Chest, Single Ap (11/27/16 19:09) Ecg Monitoring (11/27/16 19:09) Iv Access Insert/Monitor (11/27/16 19:09) Oximetry (11/27/16 19:09) Sodium Chloride 0.9% Flush (Ns Flush) (11/27/16 19:15) Shoulder, Complete (>2vws) (11/27/16 ) Westergren Sedimentation Rate (11/27/16 19:09) C-Reactive Protein (Crp) (11/27/16 19:09) Lactic Acid (11/27/16 19:09) Blood Culture (11/27/16 19:09) Ketorolac Inj (Toradol Inj) (11/27/16 19:15) Lidocaine 1% Inj (50 Ml) (Xylocaine 1% I (11/27/16 21:15) Mri Joint Shoulder W/O Contras (11/27/16 ) Ketorolac Inj (Toradol Inj) (11/28/16 00:00) Splint Or Brace Apply/Monitor (11/28/16 01:59) Labs Laboratory Tests Test 11/27/16 11/27/16 19:45 19:54 White Blood Count 10.7 TH/MM3 Red Blood Count 4.37 MIL/MM3 Hemoglobin 13.0 GM/DL Hematocrit 38.9 % Mean Corpuscular Volume 89.0 FL Mean Corpuscular Hemoglobin 29.9 PG Mean Corpuscular Hemoglobin 33.6 % Concent Red Cell Distribution Width 13.5 % Platelet Count 174 TH/MM3 Mean Platelet Volume 7.9 FL Neutrophils (%) (Auto) 79.9 % Lymphocytes (%) (Auto) 11.1 % Monocytes (%) (Auto) 6.1 % Eosinophils (%) (Auto) 0.5 % Basophils (%) (Auto) 2.4 % Neutrophils # (Auto) 8.4 TH/MM3 Lymphocytes # (Auto) 1.2 TH/MM3 Monocytes # (Auto) 0.7 TH/MM3 Eosinophils # (Auto) 0.1 TH/MM3 Basophils # (Auto) 0.3 TH/MM3 CBC Comment DIFF FINAL Differential Comment Erythrocyte Sedimentation Rate 20 mm/hr Sodium Level 131 MEQ/L Potassium Level MEQ/L Chloride Level 98 MEQ/L Carbon Dioxide Level 25.8 MEQ/L Anion Gap 7 MEQ/L Blood Urea Nitrogen 6 MG/DL Creatinine 0.71 MG/DL Estimat Glomerular Filtration 115 ML/MIN Rate Random Glucose 87 MG/DL Calcium Level 9.2 MG/DL Total Bilirubin 0.8 MG/DL Aspartate Amino Transf 43 U/L (AST/SGOT) Alanine Aminotransferase 51 U/L (ALT/SGPT) Alkaline Phosphatase 81 U/L Total Creatine Kinase 70 U/L Troponin I LESS THAN 0.02 NG/ML C-Reactive Protein 1.90 MG/DL Total Protein 8.1 GM/DL Albumin 3.6 GM/DL Prothrombin Time 10.2 SEC Prothromb Time International 0.9 RATIO Ratio Activated Partial 27.6 SEC Thromboplast Time Lactic Acid Level 0.9 mmol/L [facility] Medical Record Reviewed: Yes Supervised Visit with SYLVAIN: Yes Interpretation(s) The MRI shows minimal before meals effusion and mild periarticular edema. There is no evidence of osteomyelitis. Differential Diagnosis Arthritis left shoulder, tendinitis left shoulder, septic arthritis Narrative Course I can fully abduct this patient's left shoulder passively without any pain as long as he does not use his muscles. This indicates that he does not have a septic arthritis, rather a arthritis/tendinitis Diagnosis Primary Impression: Arthritis of left shoulder region Additional Impression: Left shoulder tendinitis Additional Instruction: Rest, time and Motrin 800 mg 3 times a day is the mainstay of treatment. Follow -up with an orthopedic physician if worse. Med/Other Pt SpecificInfo: Prescription(s) given Scripts Ibuprofen 800 Mg [id number] Mg PO TID #44 TAB Ref 0 Prov:Curt Pederson MD 11/28/16 Disposition: 01 DISCHARGE HOME Condition: Stable Curt Pederson MD Nov 28, 2016 01:59
[2016-11-28 02:07] VITALS: BP 152/89; PULSE 63; RESP 18; O2SAT 95
--- NOTE | 2016-11-28 07:36 | EKG ---
Date Performed: 11/27/2016 Time Performed: 19:57:36 PTAGE: 56 years EKG: Sinus rhythm . Normal ECG NO PREVIOUS TRACING DOCTOR: Devin Brink Interpretating Date/Time 11/28/2016 07:35:23
--- NOTE | 2016-11-28 09:12 | RADHPO ---
EXAM DATE/TIME: 11/27/2016 23:16 [facility] COMPARISON: No previous studies available for comparison. INDICATIONS : Pain for 2 days with no known injury MEDICAL HISTORY : None. SURGICAL HISTORY : Tonsillectomy. ENCOUNTER: Initial ACUITY: 2 day PAIN SCORE: 8/10 LOCATION: Left shoulder TECHNIQUE: Multiplanar, multisequence MRI examination was performed without contrast. FINDINGS: ROTATOR CUFF: Mild intermediate signal abnormality of the distal supraspinatus tendon anteriorly at its insertion i ndicating tendinosis/small partial thickness bursal surface tear. Mild articular surface fraying of t he distal infraspinatus tendon. No full-thickness rotator cuff tendon tear. Subscapularis and teres m inor tendons are intact. LABRUM: Nondisplaced inferior labral tear involving the anterior inferior and posterior inferior quadrants. MARROW/CARTILAGE: Mild reactive bony change in the proximal humerus adjacent to the infraspinatus insertion. Glenohumer al joint articular cartilage within normal limits. OTHER: Mild hypertrophic change of the acromioclavicular joint. Moderate severity superficial soft tissue ed kd surrounding the acromioclavicular joint. Mildly increased fluid within the acromioclavicular join t. Acromion is Type 1 (flat). Proximal biceps tendon is intact. CONCLUSION: 1. Nondisplaced age indeterminate inferior labral tear. 2. Mild distal supraspinatus and infraspinatus tendinopathy. No full thickness tear. 3. Acromioclavicular joint arthrosis with mildly increased fluid within the joint. Moderate nonspecif ic edema adjacent to the acromioclavicular joint. 4. Mild subacromial subdeltoid bursitis. Larry Lawson MD on November 28, 2016 at 9:02 Board Certified Radiologist. This report was verified electronically.
== END 2016-11-28 02:36 | disposition home or self-care (01) ==
LOC: PHED 18:45
DX: M19.012 Primary osteoarthritis, left shoulder (principal); M75.92 Shoulder lesion, unspecified, left shoulder; I25.2 Old myocardial infarction; F17.210 Nicotine dependence, cigarettes, uncomplicated
CPT/HCPCS: 20610; 71010; 73030; 73221; 80053; 82550; 83605; 84484; 85025; 85610; 85652; 85730; 86140; 87040; 93005; 96374; 96376; 99285; J1885